=== PATIENT | male | born 1955 | race Caucasian/White ===

== ENCOUNTER 2016-11-29 18:21 | Emergency (ER) | payer MEDICAID ==
[~2016-11-29] VITALS: Ht 170.2 cm; Wt 90.7 kg
[2016-11-29] MEDS ORDERED: GABAPENTIN 600600 MG PO (18:31)
[2016-11-29] MEDS ORDERED: ATORVASTATIN CA40 MG PO (18:31)
[2016-11-29] MEDS ORDERED: NEXIUM 24HR20 MG PO (18:31)
[2016-11-29] MEDS ORDERED: ASPIRIN 81MG TA81 MG PO (18:34)
--- NOTE | 2016-11-29 19:11 | Urgent Treatment Center Report ---
History of Present Issue Date/Time Seen by Provider 11/29/16 4713 Visit Reason Pt arrived:Walked Presenting Problem:BODY ACHES, "FEELS BAD" AND POSSIBLE FEVER STATES SYMPTOMS BEGAN AT 0300 THIS MORNING Location if Accident: Onset of symptoms date/time:11/29/16 or onset unknown for: Have you (or family members/close friends) recently traveled outside the [place]? N If Yes, where/when: Have you had exposure to infectious disease within the past month? TB? Other? Specify: c/o bodyaches, chills, feeling feverish since around 0300 today, 17 hours ago. Really no other symptoms. [place] fine yesterday and even helped family move. Woke up in the middle of the night feeling feverish. Hasn't checked temp. Hasn't taken any medications today besides daily medications. "Just laid in bed with covers all day". No known sick contacts. No pain. Denies SOA, chest pain, nausea and more. See ROS. + rhinorrhea and nasal congestion but adamant that has been his norm x years. Better at times, worse at times but not related to the way he feels now. Hx of PR "twenty some years ago". Dx afib < 1 year ago during routine check up. Taking ASA daily. Pt unsure if he is in afib constantly or not. Source patient Exam Limitations no limitations ALLERGIES Coded Allergies: No Known Allergies (12/22/15) Home Medications Reported Medications Atorvastatin Calcium 40 MG PO DAILY #30 Gabapentin (Gabapentin 600MG) 600 MG PO TID #90 Esomeprazole Magnesium (Nexium 24HR) 20 MG PO DAILY #28 ASPIRIN (Aspirin) 81 MG PO DAILY History Medical History General CAD? No Angina: No PR: No Hypertension? No Hyperlipidemia? Yes CHF? No DVT? No PE? No COPD? No Asthma? No Anemia? No GERD? Yes Gastric ulcers? No GI Bleed? No Hernia? No Thyroid Problems? No Hypothyroidism? No CVA? No Seizures? No Diabetes? No Renal Insuffiency? No UTI? No Stones? No BPH? No GB Disease: No Nephritic Syndrome? No Asplenia? No Hepatitis? No Sickle Cell Disease? No Arthritis? No Migraines? No Cataracts? No Glaucoma? No MRSA? No HIV? No TB? No Anxiety? No Depression? No Cancer? No More? Yes Additional hx: AFIB Immunization HX DT/Tetanus Unknown Surgical Hx Previous Surgery?N Social History Smoking Hx Smoker: Current Every Day Smoker Tobacco: Yes Type Cigarettes Alcohol Alcohol: No Review of Systems All Other Systems Reviewed and Negative Constitutional see HPI, denies diaphoresis Eyes denies drainage, denies vision change ENT see HPI. denies: ear pain, throat pain. Respiratory denies cough, denies orthopnea, denies shortness of breath, denies wheezing, other (NELLI, wears cpap) Cardiovascular denies chest pain, denies edema, denies palpitations, denies syncope Gastrointestinal denies abdominal pain, denies diarrhea, denies nausea, denies vomiting Genitourinary other (oliguria, urinated once today). denies: discharge, dysuria, frequency, hesitancy, pain, genital lesions. Musculoskeletal other (only generalized aching) Skin denies lesions, denies lumps, denies rash Psychiatric/Neurological denies headache, denies numbness, denies tingling, weakness Comment denies any recent travel Physical Exam Vital Signs Vital Signs Date Time Temp Pulse Resp B/P Pulse O2 O2 Flow FiO2 Ox Delivery Rate 11/29 1828 98.0 100 18 143/70 99 11/29 1825 98.0 100 143/ 99 General Appearance no apparent distress, appears to not feel well Eye Exam - bilateral eye normal exam Ear, Nose, Throat normal ENT inspection (x/ moderate nasal congestion) Neck non-tender, supple, full range of motion Respiratory Status Yes: trachea midline, chest symmetrical. No: respiratory distress, use of accessory muscles, productive cough, non productive cough. Lung Sounds anterior: lungs clear. posterior: lungs clear. bilateral: lungs clear. 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 No Results/Orders Laboratory Tests 11/29/161924: Creatine Kinase 87, CK-MB (CK-2) Rel Index 0.9, CK and CKMB Interp 0.8, Troponin I < 0.02 11/29/161924: Sodium 141, Potassium 3.8, Chloride 105, Carbon Dioxide 26, BUN 10, Creatinine 0.8, Estimated Creat Clear 128, Estimated GFR (MDRD) 99, Glucose 102, Calcium 9.4, Total Bilirubin 0.6, AST 13 L, ALT 28, Alkaline Phosphatase 102, Total Protein 8.0, Albumin 4.0, Globulin 4.0 H, Albumin/Globulin Ratio 1.0 L, TSH 0.57, WBC 9.2, RBC 5.36, Hgb 16.5, Hct 49.7, MCV 92.7, RDW 13.0, Plt Count 261, MPV 5.9 L, Gran % 65.5, Gran # 6.0, Lymphocytes % 27.6, Monocytes % 3.8, Eosinophils % 2.8, Basophils % 0.3, Lymphocytes # 2.5, Monocytes # 0.4, Eosinophils # 0.3, Basophils # 0.0, PUBS MCHC 33.3, MCH 30.8 11/29/161852: Influenza Type A Ag NOT DETECTED, Influenza Type B Ag NOT DETECTED, Group A Strep Screen Pending, Urine Color YELLOW, Urine Appearance Clear, Urine pH 6.5, Ur Specific [place] 1.010, Urine Protein NEGATIVE, Urine Ketones NEGATIVE, Urine Blood TRACE H, Urine Nitrate NEGATIVE, Urine Bilirubin NEGATIVE, Urine Urobilinogen 0.2, Ur Leukocyte Esterase NEGATIVE, Urine Glucose NEGATIVE Orders Procedure Date/time Status ELECTROCARDIOGRAM REQUEST 11/29 1905 Active CARDIAC ENZYMES 11/29 1905 Complete CHEST(2 VIEWS-NOT PORTABLE) 11/30 1855 Active [facility] URINE DIPSTICK 11/30 1855 Active [facility] STREP SCREEN 11/30 1855 Active [facility] FLU A,B 11/30 1855 Active THYROID STIMULATING HORMONE 11/30 1855 Complete CBC WITH AUTO DIFF 11/30 1855 Complete CHEM 12 PROFILE 11/30 1855 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 Gee, ER XRAY/CT/US XRAY/CT/US XRAY chest XR interpretation by reviewed by me (w/ Dr. Gee) Xray Results normal/NAD (evidence of tobacco use) Consult MD Physician Consult Consult/PCP DAVID Chavarria MD Time Called 193 Reason Pt. Condition Comments Rvwd EKG and CXR. No further suggestions. Progress [facility] Progress Notes 1 Date 11/29/16 Time 190 Comment Discussed fairly normal exam w/ exception of findings that pt reports as normal. Pt doesn't want to follow up w/ PCP tomorrow. Wants to know why he feels the way he feels tonight. Requesting further workup than exam and flu, strep testing. [facility] Progress Notes 2 Date 11/29/16 Time 1945 Comment Patient resting. Has consumed 16 ounces of water since arrival. Still no urge to urinate. Reports urinated prior to arrival. Provided w/ another 16 ournces. Departure Departure Time of Disposition 2015 Disposition DC Home or Self Care(routine) Clinical Impression Primary Impression: Body aches Secondary Impressions: Chills (without fever) Condition STABLE Referrals Michelle SIERRA,[place] (Family) Call tomorrow for follow up appt Follow up IMMEDIATELY for new or worsening symptoms. 911 for difficulty breathing or swallowing. Patient Instructions DI for Viral Syndrome Additional Instructions Discussed the strong possibility of viral syndrome. Risk of PE considered and relatively low given ROS, exam, and no recent travel. negative workup this evening. Tylenol as needed for fever, aches, chills. Call PCP tomorrow morning for follow up appt. Discharge Counseling Counseled pt/family regarding diagnosis, test results, medications/RX, home care, follow up needs at 2021
--- NOTE | 2016-11-29 19:11 | Urgent Treatment Center Report ---
History of Present Issue Date/Time Seen by Provider 11/29/16 6903 Visit Reason Pt arrived:Walked Presenting Problem:BODY ACHES, "FEELS BAD" AND POSSIBLE FEVER STATES SYMPTOMS BEGAN AT 0300 THIS MORNING Location if Accident: Onset of symptoms date/time:11/29/16 or onset unknown for: Have you (or family members/close friends) recently traveled outside the [place]? N If Yes, where/when: Have you had exposure to infectious disease within the past month? TB? Other? Specify: c/o bodyaches, chills, feeling feverish since around 0300 today, 17 hours ago. Really no other symptoms. [place] fine yesterday and even helped family move. Woke up in the middle of the night feeling feverish. Hasn't checked temp. Hasn't taken any medications today besides daily medications. "Just laid in bed with covers all day". No known sick contacts. No pain. Denies SOA, chest pain, nausea and more. See ROS. + rhinorrhea and nasal congestion but adamant that has been his norm x years. Better at times, worse at times but not related to the way he feels now. Hx of [place] "twenty some years ago". Dx afib < 1 year ago during routine check up. Taking ASA daily. Pt unsure if he is in afib constantly or not. Source patient Exam Limitations no limitations ALLERGIES Coded Allergies: No Known Allergies (12/22/15) Home Medications Reported Medications Atorvastatin Calcium 40 MG PO DAILY #30 Gabapentin (Gabapentin 600MG) 600 MG PO TID #90 Esomeprazole Magnesium (Nexium 24HR) 20 MG PO DAILY #28 ASPIRIN (Aspirin) 81 MG PO DAILY History Medical History General CAD? No Angina: No CT: No Hypertension? No Hyperlipidemia? Yes CHF? No DVT? No PE? No COPD? No Asthma? No Anemia? No GERD? Yes Gastric ulcers? No GI Bleed? No Hernia? No Thyroid Problems? No Hypothyroidism? No CVA? No Seizures? No Diabetes? No Renal Insuffiency? No UTI? No Stones? No BPH? No GB Disease: No Nephritic Syndrome? No Asplenia? No Hepatitis? No Sickle Cell Disease? No Arthritis? No Migraines? No Cataracts? No Glaucoma? No MRSA? No HIV? No TB? No Anxiety? No Depression? No Cancer? No More? Yes Additional hx: AFIB Immunization HX DT/Tetanus Unknown Surgical Hx Previous Surgery?N Social History Smoking Hx Smoker: Current Every Day Smoker Tobacco: Yes Type Cigarettes Alcohol Alcohol: No Review of Systems All Other Systems Reviewed and Negative Constitutional see HPI, denies diaphoresis Eyes denies drainage, denies vision change ENT see HPI. denies: ear pain, throat pain. Respiratory denies cough, denies orthopnea, denies shortness of breath, denies wheezing, other (NELLI, wears cpap) Cardiovascular denies chest pain, denies edema, denies palpitations, denies syncope Gastrointestinal denies abdominal pain, denies diarrhea, denies nausea, denies vomiting Genitourinary other (oliguria, urinated once today). denies: discharge, dysuria, frequency, hesitancy, pain, genital lesions. Musculoskeletal other (only generalized aching) Skin denies lesions, denies lumps, denies rash Psychiatric/Neurological denies headache, denies numbness, denies tingling, weakness Comment denies any recent travel Physical Exam Vital Signs Vital Signs Date Time Temp Pulse Resp B/P Pulse O2 O2 Flow FiO2 Ox Delivery Rate 11/29 1828 98.0 100 18 143/70 99 11/29 1825 98.0 100 143/ 99 General Appearance no apparent distress, appears to not feel well Eye Exam - bilateral eye normal exam Ear, Nose, Throat normal ENT inspection (x/ moderate nasal congestion) Neck non-tender, supple, full range of motion Respiratory Status Yes: trachea midline, chest symmetrical. No: respiratory distress, use of accessory muscles, productive cough, non productive cough. Lung Sounds anterior: lungs clear. posterior: lungs clear. bilateral: lungs clear. 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 No Results/Orders Laboratory Tests 11/29/161924: Creatine Kinase 87, CK-MB (CK-2) Rel Index 0.9, CK and CKMB Interp 0.8, Troponin I < 0.02 11/29/161924: Sodium 141, Potassium 3.8, Chloride 105, Carbon Dioxide 26, BUN 10, Creatinine 0.8, Estimated Creat Clear 128, Estimated GFR (MDRD) 99, Glucose 102, Calcium 9.4, Total Bilirubin 0.6, AST 13 L, ALT 28, Alkaline Phosphatase 102, Total Protein 8.0, Albumin 4.0, Globulin 4.0 H, Albumin/Globulin Ratio 1.0 L, TSH 0.57, WBC 9.2, RBC 5.36, Hgb 16.5, Hct 49.7, MCV 92.7, RDW 13.0, Plt Count 261, MPV 5.9 L, Gran % 65.5, Gran # 6.0, Lymphocytes % 27.6, Monocytes % 3.8, Eosinophils % 2.8, Basophils % 0.3, Lymphocytes # 2.5, Monocytes # 0.4, Eosinophils # 0.3, Basophils # 0.0, PUBS MCHC 33.3, MCH 30.8 11/29/161852: Influenza Type A Ag NOT DETECTED, Influenza Type B Ag NOT DETECTED, Group A Strep Screen Pending, Urine Color YELLOW, Urine Appearance Clear, Urine pH 6.5, Ur Specific [place] 1.010, Urine Protein NEGATIVE, Urine Ketones NEGATIVE, Urine Blood TRACE H, Urine Nitrate NEGATIVE, Urine Bilirubin NEGATIVE, Urine Urobilinogen 0.2, Ur Leukocyte Esterase NEGATIVE, Urine Glucose NEGATIVE Orders Procedure Date/time Status ELECTROCARDIOGRAM REQUEST 11/29 1905 Active CARDIAC ENZYMES 11/29 1905 Complete CHEST(2 VIEWS-NOT PORTABLE) 11/30 1855 Active [facility] URINE DIPSTICK 11/30 1855 Active [facility] STREP SCREEN 11/30 1855 Active [facility] FLU A,B 11/30 1855 Active THYROID STIMULATING HORMONE 11/30 1855 Complete CBC WITH AUTO DIFF 11/30 1855 Complete CHEM 12 PROFILE 11/30 1855 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 Gee, ER XRAY/CT/US XRAY/CT/US XRAY chest XR interpretation by reviewed by me (w/ Dr. Gee) Xray Results normal/NAD (evidence of tobacco use) Consult MD Physician Consult Consult/PCP DAVID Chavarria MD Time Called 193 Reason Pt. Condition Comments Rvwd EKG and CXR. No further suggestions. Progress [facility] Progress Notes 1 Date 11/29/16 Time 190 Comment Discussed fairly normal exam w/ exception of findings that pt reports as normal. Pt doesn't want to follow up w/ PCP tomorrow. Wants to know why he feels the way he feels tonight. Requesting further workup than exam and flu, strep testing. [facility] Progress Notes 2 Date 11/29/16 Time 1945 Comment Patient resting. Has consumed 16 ounces of water since arrival. Still no urge to urinate. Reports urinated prior to arrival. Provided w/ another 16 ournces. Departure Departure Time of Disposition 2015 Disposition [place] Home or Self Care(routine) Clinical Impression Primary Impression: Body aches Secondary Impressions: Chills (without fever) Condition STABLE Referrals Michelle SIERRA,[place] (Family) Call tomorrow for follow up appt Follow up IMMEDIATELY for new or worsening symptoms. 911 for difficulty breathing or swallowing. Patient Instructions DI for Viral Syndrome Additional Instructions Discussed the strong possibility of viral syndrome. Risk of PE considered and relatively low given ROS, exam, and no recent travel. negative workup this evening. Tylenol as needed for fever, aches, chills. Call PCP tomorrow morning for follow up appt. Discharge Counseling Counseled pt/family regarding diagnosis, test results, medications/RX, home care, follow up needs at 2021
[2016-11-29 19:36] LABS: HEMOGLOBIN 16.5 g/dL (14.1-18.0); LYMPH # 2.5 K/mm3 (0.7-4.5); LYMPH % 27.6 % (10-50)
[2016-11-29 20:02] LABS: URINE BILIRUBIN - DIPSTICK NEGATIVE (NEG); URINE BLOOD TRACE (NEG)
[2016-11-29 20:28] VITALS: BP 143/70
--- NOTE | 2016-11-30 05:23 | RADIOLOGY REPORT PS360 ---
CHEST(2 VIEWS-NOT PORTABLE) HISTORY: weakness, fatigue 16 hours, + tobacco abuse ORDERING PHYSICIAN: MELISSA COLORADO APRN PATIENT AGE: 61 years COMPARISON: 09/26/2015 FINDINGS: The cardiomediastinal silhouette and pulmonary vascularity are within normal limits. No lobar consolidation or collapse is evident. Patchy density is present in the right upper lobe overlying the third rib anteriorly may be related to an area of atelectasis or infiltrate. Follow-up recommended to confirm resolution. The remaining lungs are clear.. No acute bony abnormalities. IMPRESSION: Patchy density overlying the right third rib anteriorly which may be due to an area of infiltrate. Follow-up recommended as a developing pulmonary lesion cannot be excluded.
[2016-11-30 12:19] LABS: UTC STREP SCREEN NOT DETECTED (NOTDETECTED)
--- OUTSIDE RECORDS SUMMARY | 2016-12-05 08:18 | External Medical Summary Rpt ---
Author Author , Organization [employer] Address Unknown Phone Unavailable Purpose Continuity of Care Document - through 2016
--- OUTSIDE RECORDS SUMMARY | 2016-12-05 08:19 | External Medical Summary Rpt ---
Author Author [employer] Organization [employer] Address Unknown Phone Unavailable Purpose Continuity of Care Document - through 2016
--- OUTSIDE RECORDS SUMMARY | 2016-12-05 08:19 | External Medical Summary Rpt ---
Author Author [facility] [employer], [facility] [employer] Organization [facility] Address Unknown Phone Unavailable Results Comprehensive metabolic 2000 panel in Serum or Plasma Observa Value Referen Units Interpr Notes Date tion ce etation Range Albumin/G 1.1 - 1.8 No Low No November 29 lobulin informati informati 2016 7:25 [Mass on in on in PM ratio] in source source Serum or data data Plasma Albumin 3.4 - 5.0 gm/dL Normal No November 29 [Mass/vol informati 2016 7:25 ume] in on in PM Serum or source Plasma data Alkaline 46 - 116 U/L Normal No November 29 phosphata informati 2016 7:25 se on in PM [Enzymati source c data activity/ volume] in Serum or Plasma Bilirubin 0.2 - 1.0 mg/dL Normal No November 29 .total informati 2016 7:25 [Mass/vol on in PM ume] in source Serum or data Plasma Urea 7 - 18 mg/dL Normal No November 29 nitrogen informati 2016 7:25 [Mass/vol on in PM ume] in source Serum or data Plasma Calcium 8.5 - mg/dL Normal No November 29 [Mass/vol 10.1 informati 2016 7:25 ume] in on in PM Serum or source Plasma data Chloride 98 - 107 mmoL/L Normal No November 29 [Moles/vo informati 2016 7:25 lume] in on in PM Serum or source Plasma data Carbon 21.0 - mmoL/L Normal No November 29 dioxide, 32.0 informati 2016 7:25 total on in PM [Moles/vo source lume] in data Serum or Plasma Creatinin 0.70 - mg/dL Normal No November 29 e 1.30 informati 2016 7:25 [Mass/vol on in PM ume] in source Serum or data Plasma Creatinin 50 - 200 ML/MIN Normal No November 29 e renal informati 2016 7:25 clearance on in PM source predicted data by Cockcroft -Gault formula Estimated >60 ML/MIN No REFERENCE November 29 informati RANGE: 2017 7:25 glomerula on in >60 PM r source ML/MIN/1. filtratio data 73 SQUARE n rate METERSIf (GF this patient is -A merican, then multiply theresult by 1.210. Globulin 1.3 - 3.2 gm/dL High No November 29 [Mass/vol informati 2016 7:25 ume] in on in PM Serum source data Glucose 74 - 106 mg/dL Normal No November 29 [Mass/vol informati 2016 7:25 ume] in on in PM Serum or source Plasma data Potassium 3.5 - 5.1 mmoL/L Normal No November 29 inform2016 7:25 [Moles/vo on in PM lume] in source Serum or data Plasma Sodium 136 - 145 mmoL/L Normal No November 29 [Moles/vo informati 2016 7:25 lume] in on in PM Serum or source Plasma data Aspartate 15 - 37 U/L Low No November 29 inform2016 7:25 aminotran on in PM sferase source [Enzymati data c activity/ volume] in Serum or Plasma Alanine 12 - 78 U/L Normal No November 29 aminotran 2016 7:25 sferase on in PM [Enzymati source c data activity/ volume] in Serum or Plasma Protein 6.4 - 8.2 gm/dL Normal No November 29 [Mass/vol informati 2016 7:25 ume] in on in PM Serum or source Plasma data Thyrotropin [Units/volume] in Serum or Plasma Observa Value Referen Units Interpr Notes Date tion ce etation Range Thyrotrop 0.358 - uIU/ml No No November 29 in 3.740 informati informati 2016 7:25 [Units/vo on in on in PM lume] in source source Serum or data data Plasma CBC W Auto Differential panel in Blood Observa Value Referen Units Interpr Notes Date tion ce etation Range Basophils 0 - 0.2 K/MM3 Normal No November 29 informati 2016 7:25 [#/volume on in PM ] in source Blood by data Automated count Basophils 0.1 - 2.0 % Normal No November 29 / informati 2016 7:25 leukocyte on in PM s in source Blood by data Automated count Eosinophi 0.0 - 0.4 K/mm3 Normal No November 29 ls informati 2016 7:25 [#/volume on in PM ] in source Blood by data Automated count Eosinophi 0.1 - % Normal No November 29 ls/100 12.0 informati 2016 7:25 leukocyte on in PM s in source Blood by data Automated count Granulocy 1.3 - 8.0 K/mm3 Normal No November 29 estelita informati 2016 7:25 [#/volume on in PM ] in source Blood by data Automated count Granulocy 37.0 - % Normal No November 29 estelita/100 80.0 informati 2016 7:25 leukocyte on in PM s in source Blood by data Automated count Hematocri 42.0 - % Normal No November 29 t [Volume 52.0 informati 2016 7:25 on in PM Fraction] source of Blood data Hemoglobi 14.1 - g/dL Normal No November 29 n 18.0 informati 2016 7:25 [Mass/vol on in PM ume] in source Blood data Lymphocyt 0.7 - 4.5 K/mm3 Normal No November 29 es informati 2016 7:25 [#/volume on in PM ] in source Unspecifi data ed specimen by Automated count Lymphocyt 10 - 50 % Normal No November 29 es informati 2016 7:25 [#/volume on in PM ] in source Unspecifi data ed specimen by Automated count Erythrocy 27 - 31.2 pg Normal No November 29 te mean informati 2016 7:25 corpuscul on in PM ar source hemoglobi data n [Entitic mass] Erythrocy 31.8 - g/dl Normal No November 29 te mean 35.4 informati 2016 7:25 corpuscul on in PM ar source hemoglobi data n concentra tion [Mass/vol ume] by Automated count Erythrocy 82.2 - fl Normal No November 29 te mean 97.8 informati 2016 7:25 corpuscul on in PM ar volume source [Entitic data volume] by Automated count Monocytes 0.1 - 1.0 K/mm3 Normal No November 29 informati 2016 7:25 [#/volume on in PM ] in source Blood by data Automated count Monocytes 1.7 - 9.3 % Normal No November 29 informati 2016 7:25 leukocyte on in PM s in source Blood by data Automated count Platelet 7.4 - fl Low No November 29 mean 10.4 informati 2016 7:25 volume on in PM [Entitic source volume] data in Blood by Automated count Platelets 142 - 424 K/mm3 Normal No November 29 informati 2016 7:25 [#/volume on in PM ] in source Blood data Erythrocy 4.6 - 6.2 M/mm3 Normal No November 29 estelita informati 2016 7:25 [#/volume on in PM ] in source Amniotic data fluid Erythrocy 11.5 - % Normal No November 29 te 17.5 informati 2016 7:25 distribut on in PM ion width source [Entitic data volume] by Automated count Leukocyte 4.8 - K/MM3 Normal No November 29 s 10.8 informati 2016 7:25 [#/volume on in PM ] in source Blood data Influenza virus A+B Ag [Presence] in Unspecified specimen Observa Value Referen Units Interpr Notes Date ti ce etation Range 11/30/16 1218: INFLUENZA A AG previously reported as: NOT DETECTED LOT # N/A EXP DATE N/A 11/30/16 1218: INFLUENZA B AG previously reported as: NOT DETECTED LOT # N/A EXP DATE N/A 11/30/16 1218: INFLUENZA A AG previously reported as: NOT DETECTED LOT # N/A EXP DATE N/A 11/30/16 1218: INFLUENZA B AG previously reported as: NOT DETECTED LOT # N/A EXP DATE N/A Streptococcus pyogenes Ag [Presence] in Unspecified specimen Observa Value Referen Units Interpr Notes Date ti ce etation Range 11/30/16 1218: INFLUENZA A AG previously reported as: NOT DETECTED LOT # N/A EXP DATE N/A 11/30/16 1218: INFLUENZA B AG previously reported as: NOT DETECTED LOT # N/A EXP DATE N/A Strepto NOT NOTDETE No No LOT # November 29 coccus DETECTE CTED informa informa N/A EXP 2016 pyogene D tion in tion in DATE 6:53 PM s Ag source source N/A [Presen data data ce] in Unspeci fied specime n Urinalysis macro (dipstick) panel in Urine Observa Value Referen Units Interpr Notes Date ti ce etation Range 11/30/16 1218: INFLUENZA A AG previously reported as: NOT DETECTED LOT # N/A EXP DATE N/A 11/30/16 1218: INFLUENZA B AG previously reported as: NOT DETECTED LOT # N/A EXP DATE N/A Appeara Clear CLEAR No No No November 29 nce of informa informa informa 2016 Urine tion in tion in tion in 6:53 PM source source source data data data Bilirub NEGATIV NEG No No No November 29 in E informa informa informa 2016 [Presen tion in tion in tion in 6:53 PM ce] in source source source Urine data data data by Test strip Erythro TRACE NEG No Abnorma No November 29 cytes informa l informa 2016 [Presen tion in tion in 6:53 PM ce] in source source Urine data data Color YELLOW YELLOW No No No November 29 of informa informa informa 2016 Urine tion in tion in tion in 6:53 PM source source source data data data Glucose NEG No No No November 29 [Mass/vol informati informati informati 2016 6:53 ume] in on in on in on in PM Urine by source source source Test data data data strip Ketones NEGATIV NEG mg/dL No No November 29 E informa informa 2016 [Presen tion in tion in 6:53 PM ce] in source source Urine data data by Automat ed test strip pH of 5.0 - 8.5 No Normal No November 29 Urine informati informati 2016 6:53 on in on in PM source source data data Protein NEG mg/dL No No November 29 [Mass/vol informati informati 2016 6:53 ume] in on in on in PM Urine by source source Automated data data test strip Specific 1.005 - No Normal No November 29 gravity 1.030 informati informati 2016 6:53 of Urine on in on in PM source source data data Leukocy NEGATIV NEG No No No November 29 te E informa informa informa 2017 esteras tion in tion in tion in 6:53 PM e source source source [Presen data data data ce] in Urine by Automat ed test strip Nitrite NEGATIV NEG No No No November 29 E informa informa informa 2016 [Presen tion in tion in tion in 6:53 PM ce] in source source source Urine data data data by Test strip Urobili 0.2 NEG E.U./dL No No November 29 nogen informa informa 2016 [Presen tion in tion in 6:53 PM ce] in source source Urine data data by Test strip
--- OUTSIDE RECORDS SUMMARY | 2016-12-05 08:19 | External Medical Summary Rpt ---
Demographics Preferred Language Albanian Marital Status Unknown Yarsani Affiliation Unknown Race Unknown Ethnic Group Unknown Author Author , Organization [employer] Address Unknown Phone Unavailable Purpose Continuity of Care Document - through 2016 Immunization No patient found.
--- OUTSIDE RECORDS SUMMARY | 2016-12-05 08:19 | External Medical Summary Rpt ---
Demographics Preferred Language Arabic Marital Status Unknown Jehovah'S Witness Affiliation Unknown Race Unknown Ethnic Group Unknown Author Author , Organization [employer] Address Unknown Phone Unavailable Purpose Continuity of Care Document - through 2016 Immunization No patient found.
== END 2016-11-29 20:29 | disposition home or self-care (01) ==
LOC: ER 18:21 → UTC 18:26
PROVIDERS: Nurse Practitioner Family
DX: R50.9 Fever, unspecified (principal); K21.9 Gastro-esophageal reflux disease without esophagitis; Z72.0 Tobacco use